=== PATIENT | female | born 1975 | race Caucasian/White ===

== ENCOUNTER 2018-02-21 05:44 | Day surgery (SDC) | payer OTHER ==
[2018-02-20 13:17] VITALS: BMI 28.7
--- NOTE | 2018-02-21 09:45 | HP ---
Satellite [facility] - Chief Complaint Chief Complaint: right thumb mass - Past Medical History Allergies/Adverse Reactions: Allergies Allergy/AdvReac Type Severity Reaction Status Date / Time No Known Allergies Allergy Verified 02/21/18 09:22 ...LMP: 11/10/16 ...LMP Comment: partial hysterectomy - Current Medications Current Medications: Home Medications Medication Instructions Recorded Ibuprofen 400 mg PO PRN PRN 02/20/18 Hydrocodone/Acetaminophen [[place] 1 each PO Q6H PRN #20 tablet MDD 4 02/21/18 5-325 Tablet] Satellite Physical Exam - Physical Examination Vital Signs: Vital Signs Period Temp Pulse Resp BP Sys/Beltrán Pulse Ox Last 24 Hr 97.8 F 71 16 100/69 100 General Appearance: Well Nourished, Well Developed, Alert & Oriented x3 ENT: Clear Lung: Normal air movement Heart: Regular rate & rhythm Extremities: Other (right thumb- + mass, nvi) Neurological: Intact, Alert, Oriented Satellite Impression/Plan - Impression/Plan Impression: right thumb mass Operative Procedure: right thumb mass excision Date to be Performed: 02/21/18
[2018-02-21] MEDS ORDERED: SODIUM CHLORIDE 0.9% P/F 10 ML VIAL IJ ONE (10:01)
[2018-02-21] MEDS ORDERED: PROPOFOL 20 ML ONE ×2 (10:01→10:06)
[2018-02-21] MEDS ORDERED: MIDAZOLAM HCL 2 MG/2 ML SINGLE DOSE VIAL ONE (10:01)
[2018-02-21] MEDS ORDERED: LIDOCAINE HCL/PF 2% SDV 5ML VIAL ONE (10:01)
[2018-02-21] MEDS ORDERED: ceFAZolin SODIUM 1 GM VIAL ONE (10:01)
[2018-02-21] MEDS ORDERED: ceFAZolin SODIUM 1 GM VIAL IVPB ONE (10:50)
[2018-02-21] MEDS ORDERED: BUPIVACAINE HCL/PF 0.5% (5MG/ML) 10 ML VIAL IJ ONE (10:58)
[2018-02-21] MEDS ORDERED: LIDOCAINE HCL 1%, 10 MG/ML (20ML VIAL) INF ONE (10:58)
--- NOTE | 2018-02-21 11:26 | OP ---
Operative Note - Note: Operative Date: 02/21/18 Pre-Operative Diagnosis: right thumb mass, recurrent paranychial infections Operation: right thumb mass excision, excision portion nail plate, open I & D Post-Operative Diagnosis: Same as Pre-op Surgeon: Ronan Eastman Anesthesiologist/BILLBOARD POSTER: Yoshi Zapata Anesthesia: Local, MAC Specimens Removed: mass, portion of nail plate Estimated Blood Loss (mls): 0 Drains, Volume Out (mls): 0 Blood Volume Replaced (mls): 0 Fluid Volume Replaced (mls): 500 Operative Report Dictated: Yes
[2018-02-21] MEDS ORDERED: LACTATED RINGERS SOLUTION 1,000 ML IV SCH (12:00)
[2018-02-21] MEDS ORDERED: oxyCODONE HCL 5 MG TABLET PO PRN ×2 (12:00)
[2018-02-21] MEDS ORDERED: ONDANSETRON 4 MG/2 ML VIAL IVPUSH PRN (12:00)
[2018-02-21 12:38] VITALS: TEMP 97.2
[2018-02-21 13:57] VITALS: BP 100/57; PULSE 76
--- NOTE | 2018-02-22 00:47 | OP ---
DATE OF OPERATION: 02/21/2018 DIAGNOSIS: Right thumb recurrent perionychial infection and thumb mass. DIAGNOSIS: Right thumb recurrent perionychial infection and thumb mass. PROCEDURE: Right thumb mass excision, excision of portion of the nail plate open incision and drainage. SURGEON: Ronan Spears M.D. ADMINISTRATIVE SECRETARY: None. ANESTHESIOLOGIST: Yoshi Zapata CRNA ANESTHESIA: MAC anesthesia, local injection of 3 mL 0.5% Marcaine with 1% lidocaine mixed. DRAINS: None. COMPLICATIONS: None. BLOOD LOSS: Minimal. BLOOD GIVEN: None. FLUID REPLACEMENT: 300 mL Plasmalyte. INDICATION: The patient is a 43-year-old female with preoperative diagnosis of recurrent right thumb perionychial infection. After understanding the potential risks, complications, alternatives, benefits to surgery versus nonsurgical treatment, the patient elected to undergo the procedure. DESCRIPTION OF PROCEDURE; The patient was brought to the operating room, peripheral IV placed, IV sedation given, 1 g of IV Ancef was given. MAC anesthesia was induced. The right upper extremity was prepped and draped in sterile fashion. A longitudinal incision was marked out over the ulna, perionychium of the right thumb. 3 mL 0.5% Marcaine with 1% lidocaine mix was injected . The right upper extremity was elevated, exsanguinated with Esmarch bandage and tourniquet inflated to 250 mmHg. A number 15 scalpel blade was utilized to make the incision. Subcutaneous hemostasis achieved with a bipolar cautery. Gentle dissection done with a sharp tipped curved Iris scissors. Small skin hooks were used for retraction and visualization. There was what looked like a ball of scar tissue. This was excised with partial visualization of a tiny foreign body in it such as a small piece of metal or a wooden splinter. It was passed off the field as specimen. I did not see any foreign bodies with the naked eye. The eye was copiously irrigated and washed out. Next, I noticed that the proximal ulnar corner of the nail plate looked abnormal. There was a portion of it that was black. There was no obvious mass. There was no stripe or streaking, but first a number 15 scalpel was utilized to cut out this corner and portion of the nail plate. It was about 3 mm wide by about 6 mm long, it was the ulnar aspect of the proximal 50% of the nail plate. This was passed off the field as part of the specimen. I did not notice any other masses, abnormal tissue whatsoever. The area was copiously irrigated and washed out. Again, I inspected the area. I did not see or feel any abnormal tissue. Closure was done with 4-0 nylon suture. The area was then washed and dried and covered with Xeroform, 4x4, Webril, fluffs between the fingers and Coban. The tourniquet was taken down after total tourniquet time of 20 minutes. There were no complications during the case. The patient tolerated the procedure well and was brought to the ambulatory recovery in stable condition. Right thumb mass excision, nail plate excision, and open incision and drainage. RONAN SPEARS M.D. [id number]
--- NOTE | 2018-02-22 17:49 | PATH ---
Surgical Pathology Report Patient Name: TALIA LEWIS [facility]. Rec. #: [id number] /Age/Gender: 1975 (Age: 43) / F Account: [id number] Location: [facility] SURGICAL Taken: 02/21/2018 Received: 02/21/2018 Reported: 02/22/2018 Physicians: Ronan Eastman M.D. Specimen(s) Received TISSUE RIGHT THUMB Clinical History Infection of right thumb Final Diagnosis TISSUE, RIGHT THUMB, BIOPSY: SEGMENT OF SKIN SHOWING ACANTHOSIS, PARAKERATOSIS, AND CHRONIC INFLAMMATION IN THE DERMIS. Electronically Signed Logan Haddad M.D. Gross Description Received in formalin labeled "tissue right thumb," are 2 remy fragments of skin averaging 0.5 cm in greatest dimension. The specimens are submitted in toto in one cassette. /02/21/201802/21/2018
== END 2018-02-21 14:12 | disposition home or self-care (01) ==
LOC: JASU-SURG 05:44
PROVIDERS: ATTEND Orthopaedic Surgery
PROC: 0HBFXZZ Excision of Right Hand Skin, External Approach (ICD-10-PCS; 2018-02-21)
PROC: 0HDQXZZ Extraction of Finger Nail, External Approach (ICD-10-PCS; principal; 2018-02-21 10:00)
DX: L08.89 Other specified local infections of the skin and subcutaneous tissue (principal); L83 Acanthosis nigricans; R23.4 Changes in skin texture
CPT/HCPCS: 88304-TC; 94760

== ENCOUNTER 2021-05-03 16:50 | Emergency (ER) | payer OTHER ==
[2021-05-03 17:32] VITALS: BP 106/73; PULSE 82; TEMP 97.8; BMI 27.8
[2021-05-03] MEDS ORDERED: METOCLOPRAMIDE HCL INJECTION 10 MG/2 ML VIAL IVPB ONE (20:11)
[2021-05-03] MEDS ORDERED: SODIUM CHLORIDE 1,000 ML IV STA (20:11)
[2021-05-03] MEDS ORDERED: ACETAMINOPHEN 1000 MG/100 ML VIAL IVPB ONE (20:11)
[2021-05-03] MEDS ORDERED: ACETAMINOPHEN INJECTION 100 ML IVPB ONE (20:26)
[2021-05-03] MEDS ORDERED: METOCLOPRAMIDE HCL INJECTION 10 MG/2 ML VIAL ONE (20:26)
[2021-05-03 21:13] LABS: PH,URINE 5.5 (5.0-8.0); URINE APPEARANCE CLEAR; URINE BILIRUBIN NEGATIVE (NEGATIVE); URINE COLOR YELLOW; URINE GLUCOSE (UA) NEGATIVE (NEGATIVE); URINE KETONE TRACE (NEGATIVE); URINE LEUK ESTERASE NEGATIVE (NEGATIVE); URINE NITRITE NEGATIVE (NEGATIVE); URINE PROTEIN NEGATIVE (NEGATIVE); URINE UROBILINOGEN 0.2 mg/dL (0.2-1.0)
[2021-05-03 21:22] LABS: BASO % 0.7 % (0-2.0); EOS % 1.1 % (0-4.5); HEMATOCRIT 40.8 % (32.4-45.2); HEMOGLOBIN 13.6 GM/dL (10.7-15.3); LYMPH % 41.6 % (8-40); MCH 28.1 pg (25.7-33.7); MCHC 33.3 g/dl (32.0-36.0); MEAN CELL VOLUME 84.6 fl (80-96); MEAN PLT VOLUME 8.4 fl (7.5-11.1); MONO % 4.7 % (3.8-10.2); NEUT % 51.9 % (42.8-82.8); PLATELET COUNT 289 10^3/uL (134-434); RBC 4.82 M/mm3 (3.60-5.2); RDW 13.1 % (11.6-15.6)
[2021-05-03 21:29] LABS: CHLORIDE 106 mmol/L (98-107); SODIUM 140 mmol/L (136-145)
[2021-05-03 21:32] LABS: CALCIUM 9.4 mg/dL (8.5-10.1)
[2021-05-03 21:33] LABS: ALBUMIN 4.1 g/dl (3.4-5.0); ANION GAP 5 MMOL/L (8-16); BLOOD UREA NITROGEN 9.2 mg/dL (7-18); CO2 30 mmol/L (21-32); GLUCOSE,RANDOM 88 mg/dL (74-106)
[2021-05-03 21:35] LABS: CREATININE 0.7 mg/dL (0.55-1.3); SGOT/AST 14 U/L (15-37); SGPT/ALT 23 U/L (13-61)
[2021-05-03 21:38] LABS: BILIRUBIN,TOTAL 0.4 mg/dL (0.2-1); TOT PROT 8.3 g/dl (6.4-8.2)
[2021-05-03 21:39] LABS: ALK PHOS 54 U/L (45-117)
[2021-05-03] MEDS ORDERED: KETOROLAC TROMETHAMINE 15 MG/ML VIAL IVPUSH ONE (23:06)
[2021-05-03] MEDS ORDERED: KETOROLAC TROMETHAMINE 15 MG/ML VIAL ONE (23:45)
== END 2021-05-03 23:57 | disposition home or self-care (01) ==
LOC: JER 16:50
PROC: 3E0333Z Introduction of Anti-inflammatory into Peripheral Vein, Percutaneous Approach (ICD-10-PCS; principal; 2021-05-03)
PROC: 3E0333Z Introduction of Anti-inflammatory into Peripheral Vein, Percutaneous Approach (ICD-10-PCS; 2021-05-03)
PROC: 3E033GC Introduction of Other Therapeutic Substance into Peripheral Vein, Percutaneous Approach (ICD-10-PCS; 2021-05-03)
PROC: 3E0337Z Introduction of Electrolytic and Water Balance Substance into Peripheral Vein, Percutaneous Approach (ICD-10-PCS; 2021-05-03)
DX: G44.209 Tension-type headache, unspecified, not intractable (principal)
CPT/HCPCS: 36415; 70450-TC; 80053; 81003; 82550; 84484; 85025; 87086; 93005; 93010; 99285-25; J0131